=== PATIENT | female | born 1970 | race Caucasian/White ===

== ENCOUNTER 2025-04-06 10:55 | Inpatient (IN) | payer OTHER ==
[~2025-04-06] VITALS: Ht 162.6 cm; Wt 67.0 kg
[~2025-04-06 10:55] MED LIST: ALBU90OI INH; AMOCLA875 PO; CLIN150 PO; CLIN300 PO; Cleocin HCl300 MG PO; FLUC150A PO; GUAI600ER PO; HYDACE5 PO; HYDACE5325 PO; IBUP800 PO; Norco 5-325 Ta1 EACH PO; OXYACE5T PO; PENVK500 PO; RXHYDACE PO; SULTRIDS PO; Ultram50 MG PO
[2025-04-06 11:46] LABS: Alanine Aminotransfer (ALT/SGP 34.0 U/L (12-78); Albumin, Blood 3.9 g/dL (3.4-5.0); Albumin/Globulin Ratio 1.3 (0.8-1.8); Anion Gap 8.0 mmol/L (3-11); Aspartate Aminotrans (AST/SGOT 22.0 U/L (12-37); Bilirubin, Total 0.5 mg/dL (0.1-1.0); Blood Urea Nitrogen 12.0 mg/dL (8-24); CO2, Blood 26.0 mmol/L (21-32); Calcium, Blood 8.9 mg/dL (8.5-10.1); Chloride, Blood 105.0 mmol/L (98-108); Creatinine, Blood 0.68 mg/dL (0.40-1.00); Globulin, Blood 3.0 g/dL (2.2-4.0); Glucose, Blood 140.0 mg/dL (70-99); Potassium, Blood 4.0 mmol/L (3.5-5.5); Sodium, Blood 135.0 mmol/L (136-145); Total Protein, Blood 6.9 g/dL (6.4-8.2)
[2025-04-06 12:30] LABS: BASOPHILS ABSOLUTE AUTO 0.06 K/mm3 (0.00-0.23); BASOPHILS PERCENT AUTO 1 % (0-2); EOSINOPHILS ABSOLUTE AUTO 0.08 K/mm3 (0.00-0.68); EOSINOPHILS PERCENT AUTO 1 % (0-6); Hematocrit 46.6 % (33.0-51.0); Hemoglobin 15.7 g/dL (11.5-16.0); IMMATURE GRAN ABSOLUTE AUTO 0.01 K/mm3 (0.00-0.10); IMMATURE GRAN PERCENT AUTO 0 % (0-1); LYMPHOCYTES ABSOLUTE AUTO 1.65 K/mm3 (0.84-5.20); LYMPHOCYTES PERCENT AUTO 19 % (21-46); MONOCYTES ABSOLUTE AUTO 0.64 K/mm3 (0.16-1.47); MONOCYTES PERCENT AUTO 7 % (4-13); Mean Corpuscular HGB Conc 33.7 g/dL (31.5-36.5); Mean Corpuscular Volume 93 fL (80-100); NEUTROPHILS ABSOLUTE AUTO 6.45 K/mm3 (1.96-9.15); NEUTROPHILS PERCENT AUTO 73 % (41-73); NRBC ABSOLUTE 0.00 K/mm3 (0.00-0.02); NRBC Auto 0.0 /100 WBC (0.0-0.2); Platelet Count 225 K/mm3 (150-400); RDW Coefficient Variation 14.0 % (11.7-14.2); RDW Standard Deviation 47.7 fL (35.1-46.3)
[2025-04-06 14:39] LABS: Influenza A, PCR NEGATIVE (NEGATIVE); Influenza B, PCR NEGATIVE (NEGATIVE); Resp Syncytial Virus, PCR NEGATIVE (NEGATIVE); SARS-Cov-2 (COVID-19) PCR, MMC NEGATIVE (NEGATIVE)
[2025-04-06] MEDS ORDERED: Ondansetron HCl 2 MG / ML 2ML Vial IV PRN (17:30)
[2025-04-06 17:32] LABS: Anti-Xa UFH, PHA Monitoring <0.10 IU/mL; Prothrombin Time Results 10.7 Sec (9.7-11.5)
[2025-04-06] MEDS ORDERED: Heparin Sodium 5000 Units/ML 1ML MDV IV ONE (18:00)
[2025-04-06] MEDS ORDERED: Heparin Sodium,Porcine/0.5 NS 500 ML IV SCH (18:00)
[2025-04-06 22:52] VITALS: BP 142/86
[2025-04-06] MEDS ORDERED: NS 1,000 ML IV SCH (23:00)
[2025-04-07] VITALS (8 sets, daily range): BP systolic 103–131; BP diastolic 57–82
[2025-04-07] MEDS ORDERED: Clarify Drug Order XX ONE (01:50)
[2025-04-07 03:15] LABS: Hematocrit 43.0 % (33.0-51.0); Hemoglobin 14.6 g/dL (11.5-16.0); Mean Corpuscular HGB Conc 34.0 g/dL (31.5-36.5); Mean Corpuscular Volume 94 fL (80-100); NRBC ABSOLUTE 0.00 K/mm3 (0.00-0.02); NRBC Auto 0.0 /100 WBC (0.0-0.2); Platelet Count 219 K/mm3 (150-400); RDW Coefficient Variation 13.9 % (11.7-14.2); RDW Standard Deviation 47.8 fL (35.1-46.3)
[2025-04-07 03:33] LABS: Anion Gap 8 mmol/L (3-11); Blood Urea Nitrogen 13 mg/dL (8-24); CHOL/HDL RATIO 2.8; CO2, Blood 27 mmol/L (21-32); Calcium, Blood 8.2 mg/dL (8.5-10.1); Chloride, Blood 107 mmol/L (98-108); Cholesterol 200 mg/dL (50-200); Creatinine, Blood 0.65 mg/dL (0.40-1.00); Glucose, Blood 106 mg/dL (70-99); HDL Cholesterol 72 mg/dL (>39); LDL/HDL RATIO 1.5; Low Density Lipoprotein Chol 108 mg/dL (0-110); Magnesium, Blood 1.9 mg/dL (1.6-2.4); Potassium, Blood 3.7 mmol/L (3.5-5.5); Sodium, Blood 138 mmol/L (136-145); Triglycerides 100 mg/dL (30-160); Very Low Density Lipoprot Chol 20 mg/dL (6-32)
--- NOTE | 2025-04-07 06:38 | NUR ---
PT STABLE THROUGHOUT SHIFT. NO C/O CHEST PAIN/PRESSURE OR DYSPNEA. PT AOX4, SBA FOR IV POLE MANAGEMENT. PT REMAINS ON ROOM AIR. PT HAS BEEN NPO SINCE 0000 FOR POSSIBLE PROCEDURE TODAY. IV HEPARIN INFUSING W/O PROBLEM, NO S/S BLEEDING/BRUISING.
[2025-04-07] MEDS ORDERED: NS 1,000 ML IV ONE ×2 (08:25→08:34)
[2025-04-07] MEDS ORDERED: Verapamil HCL 2.5 MG/ML 2ML Injection ONE (08:25)
[2025-04-07] MEDS ORDERED: Heparin Sodium 1000 Units/ML 10ML MDV ONE (08:25)
[2025-04-07] MEDS ORDERED: Nitroglycerin 2 MG/20 ML BTL ONE (08:25)
[2025-04-07] MEDS ORDERED: NS 250 ML IV ONE (08:25)
--- NOTE | 2025-04-07 08:35 | NUR ---
UPDATE: PT TO EMPLOYEE COMMUNICATIONS INTERN AT THIS TIME
[2025-04-07] MEDS ORDERED: FentaNYL Citrate 50 MCG/ML 2 ML Injection ONE (08:47)
[2025-04-07] MEDS ORDERED: Midazolam HCl 1MG / ML 2ML Vial ONE (08:47)
--- NOTE | 2025-04-07 10:05 | NUR ---
BACK FROM ANGIO: PT ARRIVES BACK FROM ANGIOGRAM. PT A&OX4. FOLLOWS COMMANDS AND ANSWERS QUESTIONS APPROPRIATELY. TR BAND IN PLACE TO R RADIAL INFLATED WITH 12CC. SITE SOFT, NO BLEEDING, OR HEMATOMA PRESANT.DENIES ANY COMPLAINTS OF CP, PRESSURE, TIGHTNESS OR SOB. REPORTS HEAVINESS WITH BREATHING.
--- NOTE | 2025-04-07 16:35 | NUR ---
SHIFT SUMMARY: PT A&OX4. FOLLOWS COMMANDS AND MAKES NEED KNOWN TO STAFF. PT WAS ABLE TO GET UP TO THE BATHROOM WITH SBA FOR CORD MANAGEMENT. PT WENT FOR AN ANGIO FIRST THING THIS AM. INTERVENTIONS WERE NOT ABLE TO BE PERFORMED AT THIS FACILITY SO PT WAS TRANSFERED TO [facility] FOR A CABG. PRIOR TO TRANSPORT PT REMAINED FREE OF ANY CP OR ANY OTHER COMPLAINTS. TR BAND WAS RECOVERED AND WAS SENT WITH PT. EMS WAS INSTRUCTED ON HOW TO USE TR BAND INCASE BLEEDING STARTED DURING TRANSPORT. NO OTHER SIGNIFICANT EVENTS HAPPENED DURING THIS SHIFT. BELONGINGS WERE COLLECTED AND TAKED WITH PT. REPORT WAS CALLED TO [facility]AHBA[facility] COLES AT [id number].
== END 2025-04-07 16:35 | disposition short-term general hospital (02) | DRG 281 ==
LOC: ER 10:55 → PCU 17:29
PROVIDERS: Nurse Practitioner Acute Care; Student in an Organized Health Care Education/Training Program; ADMIT Student in an Organized Health Care Education/Training Program
PROC: B2111ZZ Fluoroscopy of Multiple Coronary Arteries using Low Osmolar Contrast (ICD-10-PCS; principal; 2025-04-07)
DX: I21.4 Non-ST elevation (NSTEMI) myocardial infarction (principal); I50.20 Unspecified systolic (congestive) heart failure; I25.10 Atherosclerotic heart disease of native coronary artery without angina pectoris; I08.1 Rheumatic disorders of both mitral and tricuspid valves; F17.210 Nicotine dependence, cigarettes, uncomplicated; E78.5 Hyperlipidemia, unspecified; I11.0 Hypertensive heart disease with heart failure
CPT/HCPCS: 36415; 71045; 76937; 80048; 80053; 80061; 83036; 83735; 83880; 84484; 85025; 85027; 85379; 85520; 85610; 85730; 87637; 93005; 93010; 93306; 93454; 99152; 99153; 99285-25; A9270; C1769; C1887; J1644; J2250; J3010; J7030; J7050; Q9967